=== PATIENT | female | born 1985 | race Hispanic/Latino ===

== ENCOUNTER 2023-07-07 06:23 | Day surgery (SDC) | payer OTHER ==
[2023-07-03 13:04] LABS: Hematocrit 42.3 % (36.0-45.0); Lymphocytes % 31.9 % (15.3-44.8); MCV 85.1 fL (80-100); MPV 9.5 fL (7.6-11.3); Platelets 231 thou/uL (152-406); RBC Red Blood Cell Count 4.98 M/uL (3.86-4.86)
[2023-07-03 13:11] LABS: Specific Gravity 1.009 (1.005-1.030); Urine Bilirubin NEGATIVE (Negative); Urine Blood Negative (Negative); Urine Clarity Clear (Clear); Urine Color Colorless (Yellow); Urine Glucose NEGATIVE (Negative); Urine Protein NEGATIVE (Negative); Urine Urobilinogen Normal (Normal)
[2023-07-07] MEDS ORDERED: SCOPOLAMINE HYDROBROMIDE PATCH TD ONE (06:35)
[2023-07-07] MEDS ORDERED: CEFAZOLIN SODIUM 2 GM/VIAL ONE (06:35)
[2023-07-07] MEDS ORDERED: Ringers Lactate 1,000 ML IV ONE ×2 (06:36→09:20)
[2023-07-07] MEDS ORDERED: BUPIVACAINE 0.25% PF 30 ML VIAL ONE (07:15)
[2023-07-07] MEDS ORDERED: LIDOCAINE 1% MPF 5 ML VIAL ONE (07:17)
[2023-07-07] MEDS ORDERED: dexAMETHasone 10 MG/ML VIAL ONE (07:17)
[2023-07-07] MEDS ORDERED: MIDAZOLAM HCL 2 MG/2 ML INJ ONE (07:17)
[2023-07-07] MEDS ORDERED: ROCURONIUM 50 MG/5 ML VIAL IV ONE (07:17)
[2023-07-07] MEDS ORDERED: propofoL 200 MG/20 ML VIAL IV ONE (07:17)
[2023-07-07] MEDS ORDERED: FENTANYL CITR 100 MCG/2 ML ONE (07:17)
[2023-07-07] MEDS ORDERED: KETAMINE HCL IN 0.9 % NACL 50 MG/5 ML SYRINGE IV ONE (07:17)
[2023-07-07] MEDS ORDERED: ONDANSETRON 4 MG/2 ML VIAL ONE (07:17)
[2023-07-07] MEDS ORDERED: KETOROLAC 30 MG/ML INJ ONE (09:11)
[2023-07-07 10:42] VITALS: O2SAT 100
[2023-07-07] MEDS ORDERED: HYDROCODONE/APAP 5/325 MG TAB ONE (10:54)
[2023-07-07 12:17] VITALS: BP 119/92; TEMP 97
--- NOTE | 2023-07-07 14:18 | OP ---
Date of Procedure: 07/07/2023 Surgeon: Janine Dumas MD Certified Industrial Hygienist: Jessica Cedeño. Preoperative Diagnoses: Pelvic pain, deep dyspareunia, and dysmenorrhea. Postoperative Diagnoses: Pelvic pain, deep dyspareunia, and dysmenorrhea, and extensive endometriosi s of the bilateral uterosacral ligaments, right mesosalpinx, dilated tubes, especially the proximal s egments in the right pararectal endometriosis and bilateral lateral [place] with endometriosis. Procedures Performed: 1.Diagnostic hysteroscopy, D and C. 2.Diagnostic laparoscopy, endometriosis, excision and this was extensive from bilateral uterosacral ligaments, left lateral wall, right pararectal space and bilateral mesosalpinges. Then, she had a co mplete right salpingectomy, left distal salpingectomy, bilateral ureterolysis to safeguard the distal portions of the ureter from injury during excision of deep uterosacral distal endometriosis. Anesthesia: General endotracheal. Estimated Blood Loss: 25. Urine Output: 200. Specimens: Left distal tube, then right tube with mesosalpinx endo, then right uterosacral endo with right lateral wall specimen detached and left uterosacral endo with left lateral wall specimen attac hed, then right pararectal space. Condition: Stable. Findings: Endometriosis was found as dictated on the different portions of the pelvic peritoneum inc luding thick nodular endo at the distal uterosacral ligaments where this was inserted into the laundry marker supervisor ior wall of the vagina and the distal uterus. Then, there was right pararectal space and nothing inv olving the bowel here and there was some scar on the left side, but no endometriosis was visible. Th e right and left lateral wall and distal 1/3 of the pelvic peritoneum. The implants were removed aft er the ureters and ureters had great peristalsis even after the dissection. The ovaries w ere completely unremarkable and safeguarded. The uterus was also unremarkable. Anterior cul-de-sac free of any endometriosis. Appendix normal, gallbladder and liver normal. All of the peritoneal addis faces were unremarkable. Indications: The patient is a 37-year-old, G2, P2, status post tubal ligation, 1 month fr om her last delivery, who presented with pelvic pain and deep dyspareunia also with dysmenorrhea. Pe riods are heavy; however, her leading symptoms were her pain. Exam consistent with endometriosis. N o infections detected. Ultrasound was unremarkable. A small leiomyoma or an adenomyoma identified o n the ultrasound. This did not need to be addressed. Consented her for hysteroscopy, D and C to evaluate the cavity and for possible sampling. Then discu ssed about diagnostic laparoscopy with removal of endometriosis as the main concern, diagnostic and t herapeutic at the same time. We also discussed that if there is any endometriosis within the tubes o r hydrosalpinges with hematosalpinges, then the tubes would be removed for treatment of pain. The anthony avalos did express a degree of regret from her tubal ligation, future fertility options were discussed with the patient in the face of tubal ligation as IVF; however, the patient wanted me to evaluate th e status of the tubes for possible re-anastomosis if possible, but I explained to her that with the g oal of making the pain better, the surgery will be performed in light of that and if there are tubes that are swollen and to be related to the pain, if she would like the tubes were removed and she cons ented for this. She understood all her options with IVF and consented and brought to the OR. Procedure In Detail: After informed consent was verified, she was taken back to OR, placed in supine fashion on the operating table. General anesthesia was given and she was placed in a dorsal lithoto my position using Sammy stirrups. Abdomen prepped with ChloraPrep, vulva, vagina, and perineum with Betadine and she was draped in a sterile fashion. A time-out was done. SCDs were started. Position ing was checked and we started the procedure. Speculum was placed to expose the cervix. Anterior lip grasped with 2 Allis clamps and using a diagn ostic slimline hysteroscope, the cavity was visualized, unremarkable for any masses or tumors. Thick ened endometrium alone was noted. This was sampled and uterine manipulator was fixed in place. Fole y was placed to drain the bladder and attached to a drainage bag. This area was then draped. A 1 cm infraumbilical incision made with a scalpel using the open laparoscopy technique. Fascia was incised, tagged with 0 Vicryl sutures. Peritoneum entered sharply. Sandeep was introduced after S re tractors were introduced and after adequate insufflation, site of entry was checked and was unremarka ble. The appendix, gallbladder, and liver and upper abdominal surfaces were completely unremarkable. Two 5 ports were placed in the right and left lower quadrant and 1 in the suprapubic area. After vis ualizing the endometriosis, the fourth port was placed. After the patient was placed in steep Trendelenburg, started the dissection of the left distal tube. The distal portion of the tube was removed as it was adhered to the sigmoid colon. The sigmoid colo n adhesions were first taken down with sharp dissection and with LigaSure. Then, the distal portion of the tube was removed. The proximal portion of the tube was nodular, but did not appear to be dilated so this was left alone . The right mesosalpinx was visualized. There was possible endometriosis at the ligation site of the p roximal stump. This was excised and then the distal portion of the right tube was also removed along the proximal portion. This appeared to be swollen. The specimens were sent for permanent pathology. The left lateral wall endometriosis was above the level of the ureter into distal 1/3 of the ureteric path. The peritoneum lateral to the ureter was opened up, then dissected the ureter medially in thi s location; however, it was not clear the entire location of the ureter, so I started at the right be low the pelvic brim on the left side, opened the peritoneum and dissected all the way from the medial leaf of the broad ligament to the ureteric tunnel. Then, I was able to make space between the dista l ureter and the uterosacral ligament and then the endometriosis was excised in a more stable fashion . After all the endometriosis was excised and the uterosacral ligament was also dissected to excise the endometriosis, handed out for permanent pathology. The right lateral wall was opened lateral to the ureter. Then, dissection was carried to separate th e ureter from the brim of the pelvis to the ureteric tunnel by opening the peritoneum parallel to it and lateral in location. Once the vessels were dissected free, the ureter was dissected from the med ial leaf of the peritoneum all the way to the ureteric tunnel between the uterosacral ligament and th e nodularity and dissection was created, creating clear planes for me to excise the endometriosis lat eral connection with LigaSure. Once this was done, the distal uterosacral ligament was dissected to excise all endometriosis until normal tissue was seen. The right pararectal space endo was noted. This was picked up with the help of [place] and sharp di ssehuma, opened up the peritoneum between the right border of the colon and the endometriotic implan t. This was incised with sharp scissors and dissection carried through excising the nodular implant from the pararectal space completely. Then, the right uterosacral endo was excised completely as wel l. All the areas were thoroughly irrigated and suctioned. There was excellent hemostasis. All the specimens were retrieved and labeled. I placed Interceed in the areas of dissection to prevent any a dhesions. All the trocars removed under direct vision. Instrument, needle, and sponge counts were c orrect at the end of the case. The uterine manipulator and the [place] were removed. Instrument and s ponge counts correct. I explained the results to the patient when she was more awake in the recovery area. She will follow up in 1 week and then in 3 months. DANETTE/FILIPPO Voice ID: [id number] Report ID: [id number]
== END 2023-07-07 11:52 | disposition home or self-care (01) ==
LOC: OR 06:23
PROVIDERS: ATTEND Obstetrics & Gynecology
PROC: 0DBW4ZZ Excision of Peritoneum, Percutaneous Endoscopic Approach (ICD-10-PCS; 2023-07-07)
PROC: 0UB44ZZ Excision of Uterine Supporting Structure, Percutaneous Endoscopic Approach (ICD-10-PCS; 2023-07-07)
PROC: 0WBF4ZZ Excision of Abdominal Wall, Percutaneous Endoscopic Approach (ICD-10-PCS; 2023-07-07)
PROC: 0TN74ZZ Release Left Ureter, Percutaneous Endoscopic Approach (ICD-10-PCS; 2023-07-07)
PROC: 0TN64ZZ Release Right Ureter, Percutaneous Endoscopic Approach (ICD-10-PCS; 2023-07-07)
PROC: 0UT74ZZ Resection of Bilateral Fallopian Tubes, Percutaneous Endoscopic Approach (ICD-10-PCS; 2023-07-07)
PROC: 0UDB8ZZ Extraction of Endometrium, Via Natural or Artificial Opening Endoscopic (ICD-10-PCS; principal; 2023-07-07 07:30)
DX: R10.2 Pelvic and perineal pain (principal); N92.0 Excessive and frequent menstruation with regular cycle; N94.12 Deep dyspareunia; N94.6 Dysmenorrhea, unspecified
CPT/HCPCS: 58558; 58662; 50949; 58700; 85025; 36415; 86900; 86850; 81025; 86901; 88305; 81003; J2704; J2001; J2250; J3010; J1100; J2405; J7120 ×2